=== PATIENT | male | born 1945 | race Hispanic/Latino ===

== ENCOUNTER 2023-11-21 12:13 | Emergency (ER) | payer MEDICARE ==
[~2023-11-21] VITALS: Ht 172.7 cm; Wt 81.0 kg
[2023-11-21 12:33] VITALS: BP 158/77
[2023-11-21 13:00] VITALS: BP 139/81
== END 2023-11-21 13:31 | disposition home or self-care (01) ==
LOC: ED 12:13
DX: S51.812A Laceration without foreign body of left forearm, initial encounter (principal); S51.811A Laceration without foreign body of right forearm, initial encounter; S90.812A Abrasion, left foot, initial encounter; S91.205A Unspecified open wound of left lesser toe(s) with damage to nail, initial encounter; W10.9XXA Fall (on) (from) unspecified stairs and steps, initial encounter